=== PATIENT | female | born 1950 | race Caucasian/White ===

== ENCOUNTER 2023-07-20 08:59 | Outpatient (OUT) | payer MEDICARE, SELFPAY ==
--- NOTE | 2023-07-20 | XR_ITS ---
[facility] [place] [id number] Patient Name: RAFAEL ARAGON MRN: [id number] date: 1950 Sex: F Assigned Patient Location: [facility] Current Patient Location: [facility] Accession/Order Number: [id number] Exam Date: 07/20/2023 09:10 Report Date: 07/20/2023 15:43 At the request of: FELICITAS WADSWORTH Procedure: XR foot RT min 3V PROCEDURE: XR foot RT min 3V HISTORY: RIGHT FOOT PAIN , second toe pain, first toe bunion COMPARISON: None. FINDINGS: BONES:Bone hypertrophy the head of the first metatarsal and lateral deviation of the first toe. No fracture, dislocation, bone lesion. SOFT TISSUES:No visible soft tissue swelling. EFFUSION:None visible. OTHER: Negative. XR/XR foot RT min 3V IMPRESSION: 1. Bunion formation. 2. Otherwise minimal degenerative joint disease. Electronically authenticated by: ROXIE TOVAR Date: 07/20/2023 15:43
== END 2023-07-20 09:00 | disposition home or self-care (01) ==
LOC: RAD 09:01
PROVIDERS: Visit Provider Podiatrist Foot & Ankle Surgery
DX: M79.671 Pain in right foot (principal); M21.611 Bunion of right foot
CPT/HCPCS: 73630